=== PATIENT | male | born 1940 | race African-American/Black ===

== ENCOUNTER 2019-06-26 12:40 | Emergency (ER) | payer MEDICARE, MEDICAID ==
[~2019-06-26] VITALS: Ht 182.9 cm; Wt 63.0 kg
[2019-06-26] MEDS ORDERED: NS IV 500 ML 500 ML IV ONE (13:06)
[2019-06-26 13:30] LABS: BASOPHILS % (AUTO) 1 % (0-10); EOSINOPHILS # (AUTO) 0.1 10^3/uL (0.0-0.3); EOSINOPHILS % (AUTO) 2 % (0-10); HEMATOCRIT 36 % (40-54); HEMOGLOBIN 12.5 G/DL (13.3-17.7); LYMPHOCYTES % (AUTO) 25 % (12-44); MEAN CORPUSCULAR HEMOGLOBIN 31 PG (25-34); MEAN CORPUSCULAR HGB CONC 34 G/DL (32-36); MEAN CORPUSCULAR VOLUME 90 FL (80-99); MONOCYTES # (AUTO) 0.4 X 10^3 (0.0-1.0); MONOCYTES % (AUTO) 10 % (0-12); NEUTROPHILS # (AUTO) 2.4 X 10^3 (1.8-7.8); NEUTROPHILS % (AUTO) 62 % (42-75); PLATELET COUNT 171 10^3/uL (130-400); RED CELL DISTRIBUTION WIDTH 12.9 % (10.0-14.5); WHITE BLOOD COUNT 3.9 10^3/uL (4.3-11.0)
[2019-06-26 13:53] LABS: ALBUMIN 3.6 GM/DL (3.2-4.5); BILIRUBIN,TOTAL 0.5 MG/DL (0.1-1.0); CALCIUM 9.2 MG/DL (8.5-10.1); CREATININE SERUM 1.59 MG/DL (0.60-1.30); POTASSIUM 4.2 MMOL/L (3.6-5.0); TOTAL PROTEIN 6.9 GM/DL (6.4-8.2)
--- NOTE | 2019-06-26 13:58 | Diagnostic Imaging Report ---
INDICATION: Unresponsive patient. COMPARISON: None. FINDINGS: Single frontal view of the chest demonstrates normal heart size and pulmonary vascularity. The lungs are well aerated show low inspiratory volumes, but are otherwise clear. No large pleural effusion or pneumothorax is seen. The visualized osseous structures show no acute abnormalities. Large amount of gas is noted within the included portions of the colon of the upper abdomen. IMPRESSION: 1. No acute cardiopulmonary process. Dictated by: Dictated on workstation # [id number]
--- NOTE | 2019-06-26 13:59 | Diagnostic Imaging Report ---
INDICATION: Unresponsive. TECHNIQUE: Routine non contrast-enhanced axial images were obtained from the skull base to the vertex. Auto Exposure Controls were utilized during the CT exam to meet ALARA standards for radiation dose reduction COMPARISON: None. FINDINGS: The ventricles and cortical sulci are diffusely prominent, compatible with age-related volume loss. There are confluent areas of abnormal, low attenuation in the periventricular white matter. This is consistent with small vessel ischemic changes; age-indeterminate. There is no prior study available for comparison. There is no midline shift or mass-effect. No acute intra-axial hemorrhage is seen. There are no abnormal areas of increased or decreased density to suggest acute hemorrhage or edema. No extra-axial masses or collections are present. The bony calvarium is intact. The visualized paranasal sinuses are unremarkable. The mastoid air cells are clear. IMPRESSION: 1. No acute intracranial abnormality. No CT evidence of mass, acute infarct or intracranial hemorrhage. 2. Small vessel ischemic changes in the periventricular and subcortical white matter; likely chronic. Results were called to Marlys Dobbs by Dr. Champion at 1357 hours on 06/26/2019. Dictated by: Dictated on workstation # [id number]
--- NOTE | 2019-06-26 14:07 | ED General ---
General Chief Complaint: Neurological Problems Stated Complaint: LOW OXYGEN;NOT ACTING LIKE HIMSELF Nursing Triage Note: PT ARRIVES FROM [facility] FOR ALTERED MENTAL STATUS. PT IS KNOWN DEMENTIA. CARE FACILITY REPORTS THAT PT WAS NORMAL LAST NIGHT. PT IS A DIABETIC WITH A BLOOD GLUCOSE OF 106. PT WITHDRAWS TO PAINFUL STIMULI, PT DOES NOT OPEN EYES. PT IS 100% ON ROOM AIR WITH CLEAR LUNG SOUNDS. PT HAS DNR ON FILE. Nursing Sepsis Screen: No Definite Risk History of Present Illness Date Seen by Provider: Jun 26, 2019 Time Seen by Provider: 13:15 Initial Comments 79-year-old -[place] male presents from [facility]. Staff reports having altered mental status and difficulty arouse today. He has a history of dementia and is a DO NOT RESUSCITATE. Staff reports that he was acting himself last evening. He had no falls or injuries . Did not eat breakfast or lunch. Timing/Duration: 4-6 Hours Associated Systoms: Denies Symptoms Allergies and Home Medications Allergies Coded Allergies: No Known Drug Allergies (Unverified , 06/26/19) Home Medications Ciprofloxacin HCl 500 Mg Tablet, 250 MG PO BID Prescribed by: MARLYS GRIFFITH on 06/26/19 1440 Patient Home Medication List Home Medication List Reviewed: Yes Review of Systems Review of Systems Constitutional: no symptoms reported, see HPI All Other Systems Reviewed Negative Unless Noted: Yes Past Hsyxkmj-Jbxdru-Xxgdue Hx Past Med/Social Hx: Reviewed Nursing Past Med/Soc Hx Patient Social History Recent Foreign Travel: No Contact w/Someone Who Travel: No Recent Infectious Disease Expo: No Physical Abuse: No Sexual Abuse: No Mistreated: No Fear: No Physical Exam Vital Signs Vital Signs - First Documented 06/26/19 13:12 Temp 96.8 Pulse 75 Resp 18 B/P (MAP) 145/105 (118) Pulse Ox 99 O2 Delivery Room Air Capillary Refill : Less Than 3 Seconds Height, Weight, BMI Height: 6'0" Weight: 139lbs. oz. 63.233654uz; BMI Method:Stated General Appearance: No Apparent Distress, WD/WN, Other (eyes closed and no verbal response) HEENT: Normal ENT Inspection, Pharynx Normal Respiratory: Chest Non Tender, Lungs Clear, Normal Breath Sounds Cardiovascular: Regular Rate, Rhythm, No Murmur, Normal Peripheral Pulses Gastrointestinal: Normal Bowel Sounds, Non Tender, Soft; No Distended, No Guarding, No Mass, No Rebound, No Tenderness Extremity: Pedal Edema (2+) Skin: Normal Color, Warm/Dry; No Rash Progress/Results/Core Measures Suspected Sepsis Recent Fever Within 48 Hours: No Infection Criteria Present: None New/Unexplained Altered Menta: Yes Sepsis Screen: No Definite Risk SIRS Temperature:96.8 Pulse: 75 Respiratory Rate: 18 Laboratory Tests 06/26/19 13:17: White Blood Count 3.9L Blood Pressure 145 /105 Mean: 118 Laboratory Tests 06/26/19 13:17: Creatinine 1.59H, Platelet Count 171, Total Bilirubin 0.5 Results/Orders Lab Results Laboratory Tests Test 06/26/19 13:17 06/26/19 14:11 Range/Units White Blood Count 3.9 L 4.3-11.0 10^3/uL Red Blood Count 4.05 L 4.35-5.85 10^6/uL Hemoglobin 12.5 L 13.3-17.7 G/DL Hematocrit 36 L 40-54 % Mean Corpuscular Volume 90 80-99 FL Mean Corpuscular Hemoglobin 31 25-34 PG Mean Corpuscular Hemoglobin Concent 34 32-36 G/DL Red Cell Distribution Width 12.9 10.0-14.5 % Platelet Count 171 130-400 10^3/uL Mean Platelet Volume 11.0 H 7.4-10.4 FL Neutrophils (%) (Auto) 62 42-75 % Lymphocytes (%) (Auto) 25 12-44 % Monocytes (%) (Auto) 10 0-12 % Eosinophils (%) (Auto) 2 0-10 % Basophils (%) (Auto) 1 0-10 % Neutrophils # (Auto) 2.4 1.8-7.8 X 10^3 Lymphocytes # (Auto) 1.0 1.0-4.0 X 10^3 Monocytes # (Auto) 0.4 0.0-1.0 X 10^3 Eosinophils # (Auto) 0.1 0.0-0.3 10^3/uL Basophils # (Auto) 0.0 0.0-0.1 10^3/uL Sodium Level 141 135-145 MMOL/L Potassium Level 4.2 3.6-5.0 MMOL/L Chloride Level 107 98-107 MMOL/L Carbon Dioxide Level 27 21-32 MMOL/L Anion Gap 7 5-14 MMOL/L Blood Urea Nitrogen 22 H 7-18 MG/DL Creatinine 1.59 H 0.60-1.30 MG/DL Estimat Glomerular Filtration Rate 51 BUN/Creatinine Ratio 14 Glucose Level 103 70-105 MG/DL Calcium Level 9.2 8.5-10.1 MG/DL Corrected Calcium 9.5 8.5-10.1 MG/DL Total Bilirubin 0.5 0.1-1.0 MG/DL Aspartate Amino Transf (AST/SGOT) 21 5-34 U/L Alanine Aminotransferase (ALT/SGPT) 29 0-55 U/L Alkaline Phosphatase 97 40-136 U/L Total Protein 6.9 6.4-8.2 GM/DL Albumin 3.6 3.2-4.5 GM/DL Urine Color YELLOW Urine Clarity CLEAR Urine pH 7 5-9 Urine Specific [place] 1.010 L 1.016-1.022 Urine Protein NEGATIVE NEGATIVE Urine Glucose (UA) NEGATIVE NEGATIVE Urine Ketones NEGATIVE NEGATIVE Urine Nitrite NEGATIVE NEGATIVE Urine Bilirubin NEGATIVE NEGATIVE Urine Urobilinogen NORMAL NORMAL MG/DL Urine Leukocyte Esterase 3+ H NEGATIVE Urine RBC (Auto) NEGATIVE NEGATIVE Urine RBC RARE /HPF Urine WBC 10-25 H /HPF Urine Squamous Epithelial Cells RARE /HPF Urine Crystals NONE /LPF Urine Bacteria FEW H /HPF Urine Casts NONE /LPF Urine Mucus NEGATIVE /LPF Urine Culture Indicated YES My Orders Orders - MARLYS GRIFFITH Cbc With Automated Diff (06/26/19 12:53) Comprehensive Metabolic Panel (06/26/19 12:53) Ua Culture If Indicated (06/26/19 12:53) Chest 1 View, Ap/Pa Only (06/26/19 12:57) Ct Head Wo-R/O Stroke (06/26/19 12:57) Ed Iv/Invasive Line Start (06/26/19 13:06) Ns Iv 500 Ml (Sodium Chloride 0.9%) (06/26/19 13:06) Urine Culture (06/26/19 14:11) Ciprofloxacin Tablet (Cipro Tablet) (06/26/19 14:35) Medications Given in ED Current Medications Medications Dose Ordered Sig/Tay Route Start Time Stop Time Status Last Admin Dose Admin Sodium Chloride 500 ml @ 0 mls/hr Q0M ONCE IV 06/26/19 13:06 8/28/19 13:08 DC 06/26/19 13:21 0 MLS/HR Vital Signs/I&O 06/26/19 06/26/19 13:12 15:21 Temp 96.8 96.8 Pulse 75 75 Resp 18 18 B/P (MAP) 145/105 (118) 169/97 (121) Pulse Ox 99 100 O2 Delivery Room Air Capillary Refill : Less Than 3 Seconds Blood Pressure Mean: 118 Progress Note : Time: 13:15 Progress Note Patient transferred WC to bed, able to stand and follow simple commands but keeps eyes closed. No family present. LTC staff deny any choking or aspiration. No cough present and Lungs CTA. Will check labs, CT head and give normal saline [address] negative for acute findings. Labs essentially normal. Awaiting UA. 1415 and staff went to obtain UA, the patient awakened and answered all questions appropriately. Alert and oriented. Able to urinate into urinal. Declined any pain or discomfort. Patient given water and eating shara crackers. No difficulty swallowing. 1430 UA shows UTI present, will start Cipro. Otherwise patient able to return to long-term care facility, they were notified. Discharge instructions and return precautions reviewed Diagnostic Imaging Diagonstic Imaging: Xray Plain Films/CT/US/NM/MRI: chest Comments NAME: JUNIOR Rohit OBRIEN [facility] REC#: [id number] PT STATUS: REG ER : 1940 PHYSICIAN: MARLYS GRIFFITH ADMIT DATE: 06/26/19/ER Draft Date of Exam:06/26/19 CHEST 1 VIEW, AP/PA ONLY INDICATION: Unresponsive patient. COMPARISON: None. FINDINGS: Single frontal view of the chest demonstrates normal heart size and pulmonary vascularity. The lungs are well aerated show low inspiratory volumes, but are otherwise clear. No large pleural effusion or pneumothorax is seen. The visualized osseous structures show no acute abnormalities. Large amount of gas is noted within the included portions of the colon of the upper abdomen. IMPRESSION: 1. No acute cardiopulmonary process. Reviewed: Reviewed by Me Diagonstic Imaging: CT Plain Films/CT/US/NM/MRI: head Comments CT HEAD WO-R/O STROKE INDICATION: Unresponsive. TECHNIQUE: Routine non contrast-enhanced axial images were obtained from the skull base to the vertex. Auto Exposure Controls were utilized during the CT exam to meet ALARA standards for radiation dose reduction COMPARISON: None. FINDINGS: The ventricles and cortical sulci are diffusely prominent, compatible with age-related volume loss. There are confluent areas of abnormal, low attenuation in the periventricular white matter. This is consistent with small vessel ischemic changes; age-indeterminate. There is no prior study available for comparison. There is no midline shift or mass-effect. No acute intra-axial hemorrhage is seen. There are no abnormal areas of increased or decreased density to suggest acute hemorrhage or edema. No extra-axial masses or collections are present. The bony calvarium is intact. The visualized paranasal sinuses are unremarkable. The mastoid air cells are clear. IMPRESSION: 1. No acute intracranial abnormality. No CT evidence of mass, acute infarct or intracranial hemorrhage. 2. Small vessel ischemic changes in the periventricular and subcortical white matter; likely chronic. Results were called to Marlys Griffith by Dr. Champion at 1357 hours on 06/26/2019. Dictated on workstation # [id number] Reviewed: Reviewed by Me Departure Impression Primary Impression: Altered mental state Qualified Codes: R41.82 - Altered mental status, unspecified Additional Impression: UTI (urinary tract infection) Qualified Codes: N30.00 - Acute cystitis without hematuria Disposition: HOME, SELF-CARE Condition: Improved Departure-Patient Inst. Decision time for Depature: 14:30 Patient Instructions: Altered Mental Status (DC) Add. Discharge Instructions: Continue activities as tolerated. Continue home medications. Follow-up with Dr. Aguirre if symptoms are not improving or worsen. Return to emergency department for new, urgent health care needs. All discharge instructions reviewed with patient and/or family. Voiced understanding. Scripts Ciprofloxacin HCl (Ciprofloxacin HCl) 500 Mg Tablet 250 MG PO BID, #10 TAB 0 Refills Prov: MARLYS GRIFFITH 06/26/19 Copy Copies To 1: MAXWELL AGUIRRE AMY ARNP Jun 26, 2019 14:07
[2019-06-26 14:18] LABS: BILIRUBIN,URINE NEGATIVE (NEGATIVE); CLARITY,URINE CLEAR; COLOR,URINE YELLOW; GLUCOSE, URINE (UA) NEGATIVE (NEGATIVE); KETONES,URINE NEGATIVE (NEGATIVE); LEUKOCYTE ESTERASE ,URINE 3+ (NEGATIVE); NITRITE,URINE NEGATIVE (NEGATIVE); PH,URINE 7 (5-9); PROTEIN,URINE NEGATIVE (NEGATIVE); UROBILINOGEN,URINE NORMAL (NORMAL)
[2019-06-26 14:30] LABS: BACTERIA,URINE FEW /HPF; RBC,URINE RARE /HPF; SQUAMOUS EPITHELIAL CELL,UR RARE /HPF
[2019-06-26] MEDS ORDERED: CIPROFLOXACIN 500 MG (CIPRO) TABLET PO STA (14:35)
[2019-06-26] MEDS ORDERED: CIPR500T4 PO (14:40)
[2019-06-26 15:21] VITALS: BP 169/97
== END 2019-06-26 15:20 | disposition home or self-care (01) ==
LOC: EDUNIT# 12:40 → ER 12:42
DX: R41.82 Altered mental status, unspecified (principal); N39.0 Urinary tract infection, site not specified; F03.90 Unspecified dementia, unspecified severity, without behavioral disturbance, psychotic disturbance, mood disturbance, and anxiety
CPT/HCPCS: 36415; 70450; 71045; 80053; 81000; 85025; 87088

== ENCOUNTER 2020-07-29 09:49 | Emergency (ER) | payer MEDICARE, MEDICAID ==
[~2020-07-29] VITALS: Ht 172.7 cm; Wt 79.5 kg
[~2020-07-29 09:49] MED LIST: CIPR500T4 PO
--- NOTE | 2020-07-29 09:56 | ED Fall/Injury ---
General Stated Complaint: FALL Source: patient, EMS Exam Limitations: no limitations History of Present Illness Date Seen by Provider: Jul 29, 2020 Time Seen by Provider: 09:56 Initial Comments 80-year-old male presents with right knee and right shoulder pain. Patient reports she slipped in the bathroom and fell. Patient denies hitting his head. He denies any other injuries. He reports the pain in his right shoulder is on the lateral aspect of the pain other right knee the lateral aspect. He has decreased range of motion in the right shoulder due to pain. He has no other systemic complaints. Allergies and Home Medications Allergies Coded Allergies: No Known Drug Allergies (Unverified , 06/26/19) Home Medications Ciprofloxacin HCl 500 Mg Tablet, 250 MG PO BID Prescribed by: PAYAM GRIFFITH on 06/26/19 1440 Patient Home Medication List Home Medication List Reviewed: Yes Review of Systems Review of Systems Constitutional: No chills, No fever Respiratory: No cough, No short of breath Cardiovascular: No chest pain, No palpitations Gastrointestinal: No abdominal pain, No nausea, No vomiting Physical Exam Vital Signs Vital Signs - First Documented 07/29/20 09:54 Pulse 73 Resp 18 B/P (MAP) 166/92 (116) Pulse Ox 97 O2 Delivery Room Air Capillary Refill : Height, Weight, BMI Height: 6'0" Weight: 139lbs. oz. 63.822522xa; BMI Method:Stated General Appearance: no apparent distress HEENT: PERRL/EOMI Neck: supple, normal inspection Cardiovascular: regular rate, rhythm Respiratory: lungs clear, normal breath sounds Extremities: normal range of motion, other (tenderness right lateral shoulder, lateral right knee, no acute changes ROM ) Neurologic/Psychiatric: alert, normal mood/affect, oriented x 3 Skin: normal color, warm/dry Progress/Results/Core Measures Results/Orders My Orders Orders - RUBIN RAMIREZ DO Shoulder, Right, 3 Views (07/29/20 09:57) Knee, Right, 3 Views (07/29/20 09:57) Vital Signs/I&O 07/29/20 07/29/20 09:54 12:48 Pulse 73 58 Resp 18 18 B/P (MAP) 166/92 (116) 167/93 Pulse Ox 97 98 O2 Delivery Room Air Room Air Diagnostic Imaging Diagonstic Imaging: Xray Plain Films/CT/US/NM/MRI: knee, other Comments [facility] [place], [place] NAME: JUNIOR Rohit OBRIEN [facility] REC#: [id number] PT STATUS: REG ER : 1940 PHYSICIAN: RUBIN RAMIREZ DO ADMIT DATE: 07/29/20/ER Draft Date of Exam:07/29/20 KNEE, RIGHT, 3 VIEWS INDICATION: Right knee pain. EXAMINATION: Right knee, 3 views. FINDINGS: Nonweightbearing images show preservation of the joint spaces. There is subcortical cystic change noted along the very central portion of the lateral femoral condyle measuring approximately 7 mm. This does show sclerotic change around the margins. Medial femoral condyle is smooth. Patellofemoral joint shows good alignment. There are no hypertrophic bony changes. No loose bodies. No chondrocalcinosis. No acute fractures. IMPRESSION: Subcortical cystic change along the lateral femoral condyle. No significant abnormality is otherwise noted. [facility] [place] NAME: JUNIOR Rohit OBRIEN [facility] REC#: [id number] PT STATUS: REG ER : 1940 PHYSICIAN: RUBIN RAMIREZ DO ADMIT DATE: 07/29/20/ER Draft Date of Exam:07/29/20 SHOULDER, RIGHT, 3 VIEWS INDICATION: Fall. Right shoulder pain. EXAMINATION: Right shoulder, 3 views. FINDINGS: There is cephalad migration of the humeral head which is abutting the acromion process, consistent with chronic rotator cuff tear. There is narrowing of the glenohumeral joint with hypertrophic changes. The AC joint shows hypertrophic change as well. No fractures are demonstrated. IMPRESSION: Diffuse arthritic disease, consistent with chronic rotator cuff tear. No acute abnormalities. Reviewed: Reviewed by Me, Reviewed/Discussed Departure Impression Primary Impression: Fall Qualified Codes: W19.XXXA - Unspecified fall, initial encounter Additional Impressions: Shoulder contusion Qualified Codes: S40.011A - Contusion of right shoulder, initial encounter Knee contusion Qualified Codes: S80.01XA - Contusion of right knee, initial encounter Disposition: HOME, SELF-CARE Condition: Stable Departure-Patient Inst. Referrals: NO,LOCAL PHYSICIAN (PCP) Primary Care Physician Patient Instructions: Preventing Falls, Getting Up From a Fall, Contusion (DC) Add. Discharge Instructions: Follow-up with your primary care provider as needed RUBIN RAMIREZ DO Jul 29, 2020 09:56
--- NOTE | 2020-07-29 10:50 | Diagnostic Imaging Report ---
INDICATION: Right knee pain. EXAMINATION: Right knee, 3 views. FINDINGS: Nonweightbearing images show preservation of the joint spaces. There is subcortical cystic change noted along the very central portion of the lateral femoral condyle measuring approximately 7 mm. This does show sclerotic change around the margins. Medial femoral condyle is smooth. Patellofemoral joint shows good alignment. There are no hypertrophic bony changes. No loose bodies. No chondrocalcinosis. No acute fractures. IMPRESSION: Subcortical cystic change along the lateral femoral condyle. No significant abnormality is otherwise noted. Dictated by: Dictated on workstation # [id number]
--- NOTE | 2020-07-29 11:08 | Diagnostic Imaging Report ---
INDICATION: Fall. Right shoulder pain. EXAMINATION: Right shoulder, 3 views. FINDINGS: There is cephalad migration of the humeral head which is abutting the acromion process, consistent with chronic rotator cuff tear. There is narrowing of the glenohumeral joint with hypertrophic changes. The AC joint shows hypertrophic change as well. No fractures are demonstrated. IMPRESSION: Diffuse arthritic disease, consistent with chronic rotator cuff tear. No acute abnormalities. Dictated by: Dictated on workstation # [id number]
--- NOTE | 2020-07-29 12:22 | NUR ---
CALLED TO GIVE NURSE REPORT NOT AVIABLE TO GIVE REPORT. REQUEST THAT THEY COME TO GET PATIENT.
--- NOTE | 2020-07-29 12:22 | NUR ---
Aldair herrera in [facility] - 07/29/20 at 1239 by PMCCLURE CALLED AND GAVE REPORT TO HALF-WAY ABOUT X RAY DONE.
--- NOTE | 2020-07-29 12:47 | NUR ---
[facility] HERE TO GET PATIENT
[2020-07-29 12:48] VITALS: BP 167/93
== END 2020-07-29 12:47 | disposition home or self-care (01) ==
LOC: EDUNIT# 09:49 → ER 09:51
DX: S40.011A Contusion of right shoulder, initial encounter (principal); S80.01XA Contusion of right knee, initial encounter; W01.0XXA Fall on same level from slipping, tripping and stumbling without subsequent striking against object, initial encounter; Y92.002 Bathroom of unspecified non-institutional (private) residence as the place of occurrence of the external cause
CPT/HCPCS: 73030; 73562